=== PATIENT | male | born 1980 | race Caucasian/White ===

== ENCOUNTER 2022-09-24 14:04 | Emergency (ER) | payer BC, SELFPAY ==
--- NOTE | ~2022-09-24 | CT_ITS ---
EXAMINATION: CT abdomen pelvis wo con DATE: 09/24/2022 15:43 INDICATION: Right flank pain. History of kidney stones. TECHNIQUE: Computed tomography (CT) of the abdomen and pelvis was performed without intravenous contr ast. The dose-length product was 197.82 mGy-cm. Automated exposure control and iterative reconstructi on technique were employed. COMPARISON: None. FINDINGS: Lung bases are unremarkable. Heart size normal. No significant pleural or pericardial effus ion. There is a 2 mm distal right ureteral stone with mild right hydronephrosis. Bladder is decompres sed. There are nonobstructing bilateral renal stones. The liver, spleen, pancreas, adrenal glands are unremarkable. Gallbladder is present. Small hiatal he rnia. No significant vascular abnormality. There is mild ileocolic mesenteric lymphadenopathy, likely reactive. Normal appendix. Nonobstructive bowel pattern. IMPRESSION: 1. Distal right ureteral stone measuring 2 mm with mild hydronephrosis. 2: Nonobstructing bilateral nephrolithiasis. Reviewed, dictated and finalized at location A. 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
[2022-09-24 14:12] VITALS: BP 148/79; PULSE 50; TEMP 36.3; O2SAT 100
[2022-09-24 15:28] LABS: Basophils Percent Auto 0.3 % (0.2-1.2); Eosinophils Percent Auto 0.1 % (0-4.4); Hematocrit 41.7 % (42.0-52.0); Hemoglobin 14.1 g/dL (14.0-18.0); Immature Granulocyte Absolute 0.03 K/mm3 (0.00-0.031); Immature Granulocyte Percent A 0.3 % (0-0.5); Lymphocytes Absolute Auto 0.71 K/mm3 (0.9-3.2); Lymphocytes Percent Auto 5.9 % (18.3-44.2); Mean Corpuscular HGB Conc 33.8 g/dl (32-36); Mean Corpuscular Hemoglobin 30.1 pg (26-34); Mean Corpuscular Volume 89.1 fl (80-100); Mean Platelet Volume 9.9 fl (7.4-10.4); Monocytes Absolute Auto 0.5 K/mm3 (0.1-0.6); Neutrophils Absolute Auto 10.7 K/mm3 (1.3-6.7); Neutrophils Percent Auto 89.4 % (45.5-73.1); Platelet Count Result 218 k/mm3 (150-375); Red Blood Count 4.68 M/mm3 (4.6-6.20); Red Cell Distribution Width 12.7 % (11.5-14.5)
[2022-09-24 15:29] LABS: Appearance Urine Cloudy (Clear); Bilirubin Urine Negative (Negative); Blood Urine 3+ (Negative); Color Urine Yellow (Yellow); Glucose Urine UA Negative (Negative); Ketones Urine 2+ mg/dL (Negative); Leukocyte Esterase Ur Negative LEU/UL (Negative); Nitrate Urine Negative (Negative); Protein Urine 2+ mg/dL (Negative); Specific Grav Ur >= 1.030 (1.001-1.035); Urobilinogen Urine 0.2 mg/dL (<2.0)
[2022-09-24 15:38] LABS: Bacteria Urine Trace /hpf; Mucus Urine Moderate /lpf; RBC Urine >75 /hpf (0-2); Squamous Epithelial Cell Urine Rare /hpf (Few)
[2022-09-24 15:40] LABS: Alanine Aminotransferase 23 U/L (6-50); Albumin Level 4.8 g/dL (3.5-5.1); Alkaline Phosphatase 72 U/L (38-126); Anion Gap 6 mmol/L (8-16); Aspartate Amino Transferase 32 U/L (17-59); Bilirubin,Total 0.7 mg/dL (0.2-1.3); Blood Urea Nitrogen 14 mg/dL (9-20); Carbon Dioxide 29 mmol/L (22-30); Chloride 103 mmol/L (98-107); Estimated CRCL calculation 79 ml/min; Estimated Glomerular Filt Rate > 60; Glucose 137 mg/dL (65-110); Sodium 138 mmol/L (137-145)
[2022-09-24 15:49] LABS: Add Urine Microscopic? YES
--- NOTE | 2022-09-24 16:31 | ED.GENADULT ---
HPI - General Adult General Chief complaint: Back Pain/Injury Stated complaint: flank pain Time Seen by Provider: 09/24/22 15:12 History of Present Illness HPI narrative: 42-year-old male presenting to the emergency department for evaluation of right flank pain. Patient states symptoms started approximately 10 AM this morning. Patient describes right flank pain that radiates down. Patient does have a prior history of kidney stones. 8 months ago he had a stone that he passed at home and in August 2019 the patient was seen by urology at [place] for a kidney stone. Related Data Allergies Allergy/AdvReac Type Severity Reaction Status Date / Time No Known Allergies Allergy Verified 09/24/22 16:39 Review of Systems Review of Systems: CONSTITUTIONAL: Denies fever, chills, or sweats. EYES: Denies visual changes, redness, or discharge. ENT: Denies rhinorrhea, congestion, sore throat, or otalgia. CARDIOVASCULAR: Denies chest pain, palpitations, or edema. RESPIRATORY: Denies cough or dyspnea. GASTROINTESTINAL: See HPI GENITOURINARY: Denies dysuria or hematuria. SKIN: Denies rash or itching. MUSCULOSKELETAL: Denies back pain, joint pain, or myalgia. NEUROLOGIC: Denies headache, numbness, or weakness. Course Course Emergency Course: Patient reports he was having more intense pain just prior to examination. During examination patient states that the pain had recently improved. Patient was also having associated nausea at home. Patient denies any fevers. UA does show evidence of hematuria. CT scan was ordered to evaluate for kidney stone. CT scan did show a 2 mm distal right ureteral calculi. This does not appear to be an infected stone. Patient is afebrile but does have a leukocytosis of 12.0. Patient did feel improved with treatment. Patient was provided [place], Zofran, Flomax for home. Patient was provided urology follow-up. Patient was educated on reasons to return to the emergency department. All question concerns were addressed. Vital Signs Vital signs: Vital Signs Temperature 97.4 F L 09/24/22 14:12 Pulse Rate 50 L 09/24/22 14:12 Blood Pressure 148/79 H 09/24/22 14:12 Pulse Oximetry 100 09/24/22 14:12 Temperature 97.4 F L 09/24/22 14:12 Pulse Rate 50 L 09/24/22 14:12 Blood Pressure 148/79 H 09/24/22 14:12 Pulse Oximetry 100 09/24/22 14:12 Medical Decision Making Vital Signs Vital Signs: Vital Signs Temperature 97.4 F L 09/24/22 14:12 Pulse Rate 50 L 09/24/22 14:12 Blood Pressure 148/79 H 09/24/22 14:12 Pulse Oximetry 100 09/24/22 14:12 Temperature 97.4 F L 09/24/22 14:12 Pulse Rate 50 L 09/24/22 14:12 Blood Pressure 148/79 H 09/24/22 14:12 Pulse Oximetry 100 09/24/22 14:12 Lab Data Lab results reviewed: Yes I reviewed the patient's lab results. 09/24/22 15:19 09/24/22 15:19 Labs: Lab Results 09/24/22 09/24/22 09/24/22 Range/Units 15:19 15:19 15:21 WBC 12.0 H (4.5-10.0) K/mm3 RBC 4.68 (4.6-6.20) M/mm3 Hgb 14.1 (14.0-18.0) g/dL Hct 41.7 L (42.0-52.0) % MCV 89.1 (80-100) fl MCH 30.1 (26-34) pg MCHC 33.8 (32-36) g/dl RDW 12.7 (11.5-14.5) % Plt Count 218 (150-375) k/mm3 MPV 9.9 (7.4-10.4) fl Immature Gran % (Auto) 0.3 (0-0.5) % Neut % (Auto) 89.4 H (45.5-73.1) % Lymph % (Auto) 5.9 L (18.3-44.2) % [place] % (Auto) 4.0 (2.6-8.5) % Eos % (Auto) 0.1 (0-4.4) % Baso % (Auto) 0.3 (0.2-1.2) % Lymph # (Auto) 0.71 L (0.9-3.2) K/mm3 [place] # (Auto) 0.5 (0.1-0.6) K/mm3 Eos # (Auto) 0.0 (0-0.3) K/mm3 Baso # (Auto) 0.0 (0.0-0.1) K/mm3 Abs Immat Gran (auto) 0.03 (0.00-0.031) K/mm3 Absolute Neuts (auto) 10.7 H (1.3-6.7) K/mm3 Absolute Nucleated RBC 0.0 (0.0-0.012) K/mm3 Nucleated RBC % 0.0 (0.0-0.2) % Sodium 138 (137-145) mmol/L Potassium 4.0 (3.4-5.0) mmol/L Chloride 103 (98-107) mmol/L Carbon Dioxide
[2022-09-24] MEDS: KETOROLAC 15 MG/ML VIAL (*BKC) IV PUSH (16:44)
[2022-09-24] MEDS: ONDANSETRON INJ 4 MG/2 ML VIAL IV PUSH (16:44)
== END 2022-09-24 18:00 | disposition home or self-care (01) ==
PROVIDERS: Emergency Provider Emergency Medicine
DX: N13.2 Hydronephrosis with renal and ureteral calculous obstruction (principal); Z87.442 Personal history of urinary calculi
CPT/HCPCS: 36415; 74176; 80053; 81001; 85025; 96374; 96375; 99284; J1885; J2405

== ENCOUNTER 2022-09-25 22:25 | Emergency (ER) | payer BC, SELFPAY ==
[2022-09-25 22:27] VITALS: BP 162/85; PULSE 63; RESP 20; TEMP 36.4; O2SAT 100
[2022-09-26] VITALS (9 sets, daily range): BP systolic 125–130; BP diastolic 72–78; O2SAT 92–100
[2022-09-26 00:04] LABS: Appearance Urine Clear (Clear); Bilirubin Urine 1+ (Negative); Blood Urine 2+ (Negative); Glucose Urine UA Negative (Negative); Ketones Urine 2+ mg/dL (Negative); Leukocyte Esterase Ur Negative LEU/UL (Negative); Nitrate Urine Negative (Negative); Protein Urine 1+ mg/dL (Negative); Specific Grav Ur >= 1.030 (1.001-1.035); Urobilinogen Urine 0.2 mg/dL (<2.0); pH Urine 5.5 (5.0-9.0)
[2022-09-26 00:08] LABS: Calcium Oxalate Crystals Urine Present /hpf; Mucus Urine Moderate /lpf; RBC Urine 21-50 /hpf (0-2)
[2022-09-26 00:09] LABS: Add Urine Microscopic? YES; Color Urine Dark Yellow (Yellow)
[2022-09-26] MEDS: ONDANSETRON INJ 4 MG/2 ML VIAL IV PUSH (00:30)
[2022-09-26] MEDS: KETOROLAC 15 MG/ML VIAL (*BKC) IV PUSH (00:30)
--- NOTE | 2022-09-26 01:21 | ED.GENADULT ---
HPI - General Adult General Chief complaint: Urogenital-Male Stated complaint: kidney stone Time Seen by Provider: 09/26/22 00:25 History of Present Illness HPI narrative: 42-year-old male presenting ED with right-sided flank pain. He was seen yesterday and diagnosed with a 2 mm kidney stone. That time he was discharged home with a prescription for [place]. Patient has continued to have intermittent pain throughout the day today. He took a [place] and vomited. He did not attempt any other pain medication. He denies signs of systemic illness such as fever, chills nausea vomiting or diarrhea. Related Data Allergies Allergy/AdvReac Type Severity Reaction Status Date / Time No Known Allergies Allergy Verified 09/24/22 16:39 Exam Narrative: APPEARANCE: No apparent distress. Head: atraumatic. EYES: EOMI, NOSE: Atraumatic NECK: Trachea midline RESPIRATORY: No increased rate of breathing clear to auscultation bilaterally CARDIOVASCULAR: RRR, ABDOMINAL: Non-distended , nontender no guarding or rebound. No CVA tenderness MUSCULOSKELETAl: No obvious deformities NEURO: Alert. Moving 4/4 extremities SKIN:: Warm, dry. Normal color PSYCHIATRIC: Normal affect Course Vital Signs Vital signs: Vital Signs Temperature 97.6 F 09/25/22 22:27 Pulse Rate 63 09/25/22 22:27 Respiratory Rate 20 09/25/22 22:27 Blood Pressure 162/85 H 09/25/22 22:27 Pulse Oximetry 100 09/25/22 22:27 Oxygen Delivery Room Air 09/25/22 22:27 Temperature 97.6 F 09/25/22 22:27 Pulse Rate 63 09/25/22 22:27 Respiratory Rate 20 09/25/22 22:27 Blood Pressure 162/85 H 09/25/22 22:27 Pulse Oximetry 100 09/25/22 22:27 Oxygen Delivery Room Air 09/25/22 22:27 Medical Decision Making MDM Narrative Medical decision making narrative: -Presentation: 42-year-old male presenting with pain from kidney stones. Tried taking [place] and had too much vomiting. -DDX includes but is not limited to: renal colic, MSK pain -Co-morbidities complicating care: aversion to opiate use -Social determinants of health: noncontributory -External Chart Review: previous ER and CT records -Hx from independent Sources: none -Discussion of Management/Consultants: none -Independent interpretation of studies: Urinalysis showed 10-15 white blood cells per high-power field, negative nitrites and leuk esterase. White blood cell count is mildly elevated at 12. Patient be started on Cipro while we await culture results. Dx tests considered but not ordered: -Procedures: -Interventions: 4 mg Zofran, 15 mg Toradol, 1000 mg Tylenol -Shared decision making / Disposition: I discussed the patient's symptoms with him. He will be given a different pain medications she does not like taking Long[place]. Additionally be given antiemetics and a course of antibiotics. return instructions given. -RX Motrin, Tylenol, Zofran, Cipro Vital Signs Vital Signs: Vital Signs Temperature 97.6 F 09/25/22 22:27 Pulse Rate 63 09/25/22 22:27 Respiratory Rate 20 09/25/22 22:27 Blood Pressure 162/85 H 09/25/22 22:27 Pulse Oximetry 100 09/25/22 22:27 Oxygen Delivery Room Air 09/25/22 22:27 Temperature 97.6 F 09/25/22 22:27 Pulse Rate 63 09/25/22 22:27 Respiratory Rate 20 09/25/22 22:27 Blood Pressure 162/85 H 09/25/22 22:27 Pulse Oximetry 100 09/25/22 22:27 Oxygen Delivery Room Air 09/25/22 22:27 Lab Data Labs: Lab Results 09/25/22 Range/Units 23:57 Urine Color Dark yellow (Yellow) Urine Appearance Clear (Clear) Urine pH 5.5 (5.0-9.0) Ur Specific [place] >= 1.030 (1.001-1.035) Urine Protein 1+ H (Negative) mg/dL Urine Glucose (UA) Negative (Negative) mg/dL Urine Ketones 2+ H (Negative) mg/dL Ur Blood (Man) 2+ H (Negative) Urine Nitrate Negative (Negative) Urine Bilirubin 1+ H (Negative) Urine Urobilinogen 0.2 (<2.0) mg/dL Leukocyte Esterase Rfl Negative
== END 2022-09-26 01:49 | disposition home or self-care (01) ==
PROVIDERS: Emergency Provider Emergency Medicine; PCP Emergency Medicine
DX: N39.0 Urinary tract infection, site not specified (principal); N20.0 Calculus of kidney
CPT/HCPCS: 81001; 87086; 96374; 96375; 99284; J0131; J1885; J2405

== ENCOUNTER 2022-10-16 07:18 | Outpatient (CLI) | payer BC, SELFPAY ==
[2022-10-16 07:53] LABS: Appearance Urine Clear (Clear); Bilirubin Urine Negative (Negative); Blood Urine Negative (Negative); Color Urine Yellow (Yellow); Glucose Urine UA Negative (Negative); Ketones Urine Negative (Negative); Leukocyte Esterase Ur Negative LEU/UL (NEGATIVE); Nitrate Urine Negative (Negative); Protein Urine Negative (Negative); Specific Grav Ur 1.008 (1.001-1.035); Urobilinogen Urine 0.2 mg/dL (<2.0); pH Urine 7.5 (5.0-9.0)
[2022-10-16 07:54] LABS: Hematocrit 41.9 % (42.0-52.0); Mean Corpuscular HGB Conc 33.4 g/dl (32-36); Mean Corpuscular Hemoglobin 30.6 pg (26-34); Mean Corpuscular Volume 91.7 fl (80-100); Mean Platelet Volume 9.9 fl (7.4-10.4); Platelet Count Result 228 k/mm3 (150-375); Red Blood Count 4.57 M/mm3 (4.6-6.20); Red Cell Distribution Width 12.8 % (11.5-14.5); White Blood Count 4.3 K/mm3 (4.5-10.0)
[2022-10-16 07:57] LABS: Alanine Aminotransferase 20 U/L (6-50); Albumin Level 4.5 g/dL (3.5-5.1); Alkaline Phosphatase 63 U/L (38-126); Anion Gap 4 mmol/L (8-16); Aspartate Amino Transferase 26 U/L (17-59); Bilirubin,Total 0.9 mg/dL (0.2-1.3); Blood Urea Nitrogen 11 mg/dL (9-20); Calcium 8.9 mg/dL (8.4-10.2); Carbon Dioxide 30 mmol/L (22-30); Chloride 102 mmol/L (98-107); Cholesterol 238 mg/dL (0-200); Estimated Glomerular Filt Rate > 60; Glucose 105 mg/dL (65-110); HDL Direct 63 mg/dL; Potassium 4.2 mmol/L (3.4-5.0); Sodium 136 mmol/L (137-145); Triglycerides 93 mg/dL (<150)
[2022-10-16 08:08] LABS: Add Urine Microscopic? NO
[2022-10-16 08:08] LABS: LDL Cholesterol Direct 125 mg/dL
[2022-10-16 08:12] LABS: Hemoglobin A1C 5.4 % (<5.7)
[2022-10-16 08:28] LABS: Prostate Specific Antigen 1.2 ng/mL (< OR = 4.0)
[2022-10-16 10:14] LABS: Creatinine Urine 52.8 mg/dL
[2022-10-16 10:26] LABS: MALB Creatinine Ratio < 11.4 mg/g (0-30); Microalbumin Urine Random < 6.0 mg/L (0-16.7)
[2022-10-16 11:08] LABS: Free T4 Free Thyroxine 1.06 ng/mL (0.78-2.19); Vitamin D 25 Hydroxy 51.1 ng/mL
== END 2022-10-16 07:19 | disposition home or self-care (01) ==
LOC: ANHLAB 07:20
PROVIDERS: PCP Emergency Medicine; Visit Provider Emergency Medicine
DX: N20.0 Calculus of kidney (principal); R31.9 Hematuria, unspecified
CPT/HCPCS: 36415; 80053; 80061; 81003; 82043; 82306; 83036; 84153; 84439; 84443; 85027; 87086

== ENCOUNTER 2022-10-19 15:59 | Outpatient (CLI) | payer BC, SELFPAY ==
--- NOTE | ~2022-10-19 | XR_ITS ---
Supine and upright views of the abdomen Clinical history: Kidney stone Findings: Bowel gas pattern is nonspecific. No evidence for obstruction or free air. 2 mm left lower pole renal stone noted. There are pelvic calcifications, suggestive of phleboliths. Osseous structure s are intact. Impression: 2 mm left lower pole renal stone. Presumed pelvic phleboliths. Distal ureteral stone difficult to exclude. Reviewed, dictated and finalized at location . Impression: 2 mm left lower pole renal stone. Presumed pelvic phleboliths. Distal ureteral stone difficult to exclude.
== END 2022-10-19 16:00 | disposition home or self-care (01) ==
PROVIDERS: PCP Emergency Medicine; Visit Provider Emergency Medicine
DX: N20.0 Calculus of kidney (principal)
CPT/HCPCS: 74018

== ENCOUNTER 2023-08-20 07:21 | Outpatient (CLI) | payer BC, SELFPAY ==
[2023-08-20 08:13] LABS: Hematocrit 41.7 % (42.0-52.0); Hemoglobin 13.9 g/dL (14.0-18.0); Mean Corpuscular HGB Conc 33.3 g/dl (32-36); Mean Corpuscular Hemoglobin 29.9 pg (26-34); Mean Corpuscular Volume 89.7 fl (80-100); Platelet Count Result 193 k/mm3 (150-375); Red Blood Count 4.65 M/mm3 (4.6-6.20); Red Cell Distribution Width 12.8 % (11.5-14.5)
[2023-08-20 08:24] LABS: Alanine Aminotransferase 29 U/L (6-50); Albumin Level 4.2 g/dL (3.5-5.1); Alkaline Phosphatase 67 U/L (38-126); Anion Gap 6 mmol/L (8-16); Aspartate Amino Transferase 33 U/L (17-59); Bilirubin,Total 0.9 mg/dL (0.2-1.3); Blood Urea Nitrogen 15 mg/dL (9-20); Calcium 8.7 mg/dL (8.4-10.2); Carbon Dioxide 29 mmol/L (22-30); Chloride 103 mmol/L (98-107); Cholesterol 240 mg/dL (0-200); Estimated Glomerular Filt Rate > 60; Glucose 97 mg/dL (65-110); HDL Direct 54 mg/dL; Potassium 3.9 mmol/L (3.4-5.0); Sodium 138 mmol/L (137-145); Triglycerides 105 mg/dL (<150)
[2023-08-20 08:33] LABS: Hemoglobin A1C 5.7 % (<5.7)
[2023-08-20 08:35] LABS: LDL Cholesterol Direct 122 mg/dL
[2023-08-20 08:47] LABS: Vitamin D 25 Hydroxy 38.9 ng/mL
[2023-08-20 08:55] LABS: Prostate Specific Antigen 1.1 ng/mL (< OR = 4.0); Thyroid Stimulating Hormone 0.844 uIU/mL (0.465-4.680)
[2023-08-20 10:34] LABS: Creatinine Urine 124.2 mg/dL
[2023-08-20 10:51] LABS: MALB Creatinine Ratio < 4.8 mg/g (0-30); Microalbumin Urine Random < 6.0 mg/L (0-16.7)
[2023-08-20 11:13] LABS: Appearance Urine Clear (Clear); Color Urine Yellow (Yellow)
[2023-08-20 11:15] LABS: Bilirubin Urine Negative (Negative); Blood Urine Negative (Negative); Glucose Urine UA Negative (Negative); Ketones Urine Negative (Negative); Nitrate Urine Negative (Negative); Protein Urine Negative (Negative)
[2023-08-20 11:16] LABS: Add Urine Microscopic? NO; Leukocyte Esterase Ur Negative LEU/UL (NEGATIVE); Urobilinogen Urine 0.2 mg/dL (<2.0)
== END 2023-08-20 07:22 | disposition home or self-care (01) ==
LOC: ANHLAB 07:23
PROVIDERS: PCP Emergency Medicine; Visit Provider Emergency Medicine
DX: Z00.00 Encounter for general adult medical examination without abnormal findings (principal); E78.5 Hyperlipidemia, unspecified
CPT/HCPCS: 36415; 80053; 80061; 81003; 82043; 82306; 83036; 84153; 84439; 84443; 85027

== ENCOUNTER 2023-12-03 07:10 | Outpatient (CLI) | payer BC, SELFPAY ==
[2023-12-03 08:01] LABS: Hematocrit 43.6 % (42.0-52.0); Hemoglobin 14.7 g/dL (14.0-18.0); Mean Corpuscular HGB Conc 33.7 g/dl (32-36); Mean Corpuscular Hemoglobin 30.1 pg (26-34); Mean Corpuscular Volume 89.2 fl (80-100); Mean Platelet Volume 10.1 fl (7.4-10.4); Platelet Count Result 220 k/mm3 (150-375); Red Blood Count 4.89 M/mm3 (4.6-6.20); Red Cell Distribution Width 12.7 % (11.5-14.5); White Blood Count 5.2 K/mm3 (4.5-10.0)
== END 2023-12-03 07:11 | disposition home or self-care (01) ==
LOC: ANHLAB 07:11
PROVIDERS: PCP Emergency Medicine; Visit Provider Emergency Medicine
DX: D72.819 Decreased white blood cell count, unspecified (principal); E11.9 Type 2 diabetes mellitus without complications
CPT/HCPCS: 36415; 85027

== ENCOUNTER 2024-03-22 08:51 | Outpatient (CLI) | payer BC, SELFPAY ==
[2024-03-22 09:51] LABS: Cholesterol 231 mg/dL (0-200); HDL Direct 58 mg/dL; Triglycerides 114 mg/dL (<150)
[2024-03-22 10:03] LABS: LDL Cholesterol Direct 118 mg/dL
[2024-03-22 10:23] LABS: Hemoglobin A1C 5.7 % (<5.7)
[2024-03-22 11:09] LABS: Creatinine Urine 91.3 mg/dL
[2024-03-22 11:17] LABS: MALB Creatinine Ratio < 6.6 mg/g (0-30); Microalbumin Urine Random < 6.0 mg/L (0-16.7)
== END 2024-03-22 08:52 | disposition home or self-care (01) ==
PROVIDERS: PCP Emergency Medicine; Visit Provider Emergency Medicine
DX: E78.5 Hyperlipidemia, unspecified (principal); R73.03 Prediabetes
CPT/HCPCS: 36415; 80061; 82043; 83036